=== PATIENT | female | born 1945 | race Caucasian/White ===

== ENCOUNTER → 2016-08-16 | Outpatient (CLI) | payer MEDICARE ==
[~2016-08-16] MED LIST: GLUCOPHAGE500 M1 PO; LASIX20 MG PO; OXYCODONE HCL10 MG PO; PRILOSEC PO; PRILOSEC40 MG PO
--- NOTE | ~2016-08-16 | CT7 ---
[facility] A Service of [facility] & [facility] RADIOLOGY TEXT RESULTS PATIENT: VILMA LEMON LOCATION: [facility] : 45 UNIT #: [id number] AGE: [address]: Missael Garza MD SEX: F ORDER DR: [id number] [facility] [address] [place], [place] [address] [id number] O MR#: [id number] [facility] #: [id number] NAME: VILMA LEMON. : 1945 SEX: F STUDY DATE/TIME: 08/16/2016 13:02 UNIT: [facility] ROOM: STUDY DESCRIPTION: CT Abdomen Wo Cont Attending Physician: Missael Garza M.D., Ph.D. Referring Physician: Missael Garza M.D., Ph.D. Ordering Physician: Missael Garza M.D., Ph.D. Primary Care Physician: Walter Sheets M.D. MEDICAL IMAGING REPORT This report is preliminary unless electronic signature is present EXAM CT abdomen without contrast. INDICATIONS Restaging lung cancer. Observation for metastatic disease. PROCEDURE Unenhanced CT of the abdomen. This CT exam was performed with one or more of the following radiation dose reduction techniques: automatic exposure control, adjustment of mA and/or kV according to patient size, and iterative reconstruction. COMPARISON 03/01/2016. FINDINGS Refer to the separately dictated CT of the chest for thoracic findings. Stable subcentimeter cyst, left hepatic lobe. Spleen, pancreas have an unremarkable unenhanced appearance. Gallbladder is somewhat distended, but shows no radiodense stones or definite inflammatory change and is stable from the prior. There is an 8 mm high-attenuation lesion in the left kidney. It is not clearly seen on the previous contrast-enhanced study. Stable left adrenal adenoma. No aggressive appearing bone lesion. IMPRESSION 1. No convincing evidence for metastatic disease in the abdomen. 2. Incidental findings detailed above are stable. 3. There is an 8 mm high-attenuation lesion in the left kidney not clearly seen on the previous study. Though indeterminate, it probably represents a small benign proteinaceous or hemorrhagic cyst. Consider renal ultrasound for evaluation. Dictated by... [facility] A Service of [facility] & [facility] RADIOLOGY TEXT RESULTS PATIENT: VILMA LEMON LOCATION: [facility] #: [id number] : 45 UNIT #: [id number] AGE: [address]: Missael Garza MD SEX: F ORDER DR: Andreas Winter M.D. THIS IS AN ELECTRONICALLY VERIFIED REPORT Andreas Winter M.D. at 08/18/2016 7:53 AM ELLIE/katy TD: 08/17/2016 11:23 JOB #: [id number] MEDICAL IMAGING REPORT COPY
--- NOTE | ~2016-08-16 | CT57 ---
[facility] A Service of [facility] & [facility] RADIOLOGY TEXT RESULTS PATIENT: VILMA LEMON LOCATION: [facility] : 45 UNIT #: [id number] AGE: [address]: Missael Garza MD SEX: F ORDER DR: [id number] [facility] [address] [place], [place] [address] [id number] O MR#: [id number] [facility] #: [id number] NAME: VILMA LEMON. : 1945 SEX: F STUDY DATE/TIME: 08/16/2016 13:02 UNIT: [facility] ROOM: STUDY DESCRIPTION: CT Chest Wo Cont Attending Physician: Missael Garza M.D., Ph.D. Referring Physician: Missael Garza M.D., Ph.D. Ordering Physician: Missael Garza M.D., Ph.D. Primary Care Physician: Walter Sheets M.D. MEDICAL IMAGING REPORT This report is preliminary unless electronic signature is present EXAM CT chest without contrast INDICATIONS Lung cancer restaging. Observation for metastatic disease. Observation for response to therapy. PROCEDURE Unenhanced CT of the chest. This CT exam was performed with one or more of the following radiation dose reduction techniques: automatic exposure control, adjustment of mA and/or kV according to patient size, and iterative reconstruction. COMPARISON 03/01/2016 FINDINGS Significant emphysema. Nodular opacity, with fibrotic appearance posterior right upper lobe measures 3.0 x 2.0 cm, previously 2.8 x 1.4 cm. A second nodular subpleural region in the posterior right upper lobe along the fissure measures 11 mm and is stable to minimally smaller. Subpleural nodularity, superior segment of the left lower lobe along the fissure shows some central cavitation. It measures approximately 3.2 x 2.0 cm, previously 3.9 x 1.6 cm. No new nodule. There is new lytic lesion in the posterior left seventh rib adjacent to the left lung mass or nodule. There is also stable irregularity of the posterior right third rib adjacent to the right upper lobe mass. IMPRESSION 1. Interval increase in size of mass in the posterior right upper lobe. This is suspicious for residual or recurrent tumor. There is stable bony destruction of the underlying right third rib. 2. The lesion in the posterior, superior segment of the left lower lobe STS. [facility] A Service of [facility] & [facility] RADIOLOGY TEXT RESULTS PATIENT: VILMA LEMON LOCATION: [facility] : 45 UNIT #: [id number] AGE: [address]: Missael Garza MD SEX: F ORDER DR: along the fissure is very similar in size and may be slightly decreased. However there is new bony destruction of the underlying left seventh rib, in keeping with persistent and progressive disease. 3. No new pulmonary nodule. 4. Severe emphysema. 5. No adenopathy is seen in the chest. 6. A PET scan may be helpful in evaluating the full extent of activity of disease in the chest. Dictated by... Andreas Winter M.D. THIS IS AN ELECTRONICALLY VERIFIED REPORT Andreas Winter M.D. at 08/18/2016 7:53 AM EED/valdo TD: 08/17/2016 11:40 JOB #: [id number] MEDICAL IMAGING REPORT COPY
== END | disposition home or self-care (01) ==
LOC: CCAT 11:51
DX: C34.32 Malignant neoplasm of lower lobe, left bronchus or lung (principal); B95.3 Streptococcus pneumoniae as the cause of diseases classified elsewhere; R09.02 Hypoxemia; E07.9 Disorder of thyroid, unspecified; N28.89 Other specified disorders of kidney and ureter; R91.1 Solitary pulmonary nodule; J43.9 Emphysema, unspecified
CPT/HCPCS: 71250; 74150

== ENCOUNTER → 2016-11-09 | Outpatient (CLI) | payer MEDICARE ==
--- NOTE | ~2016-11-09 | CT55 ---
[facility] A Service of [facility] & [facility] RADIOLOGY TEXT RESULTS PATIENT: VILMA LEMON LOCATION: [facility] : 45 UNIT #: [id number] AGE: [address]: Missael Garza MD SEX: F ORDER DR: [id number] [facility] [address] [place], [place] [address] [id number] O MR#: [id number] [facility] #: [id number] NAME: VILMA LEMON. : 1945 SEX: F STUDY DATE/TIME: 11/09/2016 10:28 UNIT: [facility] ROOM: STUDY DESCRIPTION: CT Chest W Con Attending Physician: Missael Garza M.D., Ph.D. Ordering Physician: Fahad Garza M.D. Primary Care Physician: Primary Care Physician No MEDICAL IMAGING REPORT This report is preliminary unless electronic signature is present EXAM CT chest INDICATION Malignant neoplasm of the right upper lobe and left upper lobe. Restaging. Observation for metastatic disease. TECHNIQUE CT of the thorax with IV contrast (100 mL Isovue-370 IV contrast). Coronal and sagittal reconstructions were obtained. This CT exam was performed with one or more of the following radiation dose reduction techniques: automatic exposure control, adjustment of mA and/or kV according to patient size, and iterative reconstruction. COMPARISON CT chest dated 08/16/2016 and 03/01/2016. FINDINGS The partially cavitary mass in the superior segment, left lower lobe has increased in size measuring 5.5 x 5.3 x 4.4 cm, compared to 3.4 x 1.6 x 2.4 cm previously. The mass now erodes through the posterior left seventh rib. There is some osseous involvement of the posterior eighth rib. There is increased size of a posterior consolidation in the right upper lobe. This area measures 4.7 x 3.8 cm compared to 3.0 x 2.0 cm previously. The mass extends into the pleural space where there is some osseous erosion and sclerosis associated with the right posterior third and fourth ribs. There is severe emphysema. No new pulmonary nodules. There is some mildly enlarged mediastinal lymph nodes. A left paratracheal lymph node conglomeration measures up to 1.5 cm in short STS. [facility] A Service of [facility] & [facility] RADIOLOGY TEXT RESULTS PATIENT: VILMA LEMON LOCATION: [facility] : 45 UNIT #: [id number] AGE: [address]: Missael Garza MD SEX: F ORDER DR: axis. The soft tissue is new from the prior study. There is development of left hilar lymphadenopathy. Index left hilar lymph node measures 1.4 cm short axis. Please refer to separately dictated report for details on the abdomen. No osseous lesions are identified in the thoracic spine. IMPRESSION 1. Progression of the patient's metastatic disease. 2. Significant enlargement of the mass in the superior segment left lower lobe. This invades through the chest wall and involves the left posterior 7th rib. 3. Enlargement of the right upper lobe pulmonary mass with involvement of the right posterior 3rd and 4th ribs. 4. Severe emphysema. 5. Enlargement of mediastinal and left hilar lymphadenopathy consistent with metastatic disease. Dictated by... Daniel Veras M.D. THIS IS AN ELECTRONICALLY VERIFIED REPORT Daniel Veras M.D. at 11/09/2016 4:45 PM Tatiana TD: 11/09/2016 13:31 JOB #: [id number] MEDICAL IMAGING REPORT Page 1 of 1 COPY
--- NOTE | ~2016-11-09 | CT5 ---
[facility] A Service of [facility] RADIOLOGY TEXT RESULTS PATIENT: VILMA LEMNO LOCATION: [facility] : 45 UNIT #: [id number] AGE: [address]: Missael Garza MD SEX: F ORDER DR: [id number] [place], [place] [address] [id number] O MR#: [id number] Acc #: [id number] NAME: VILMA LEMON. : 1945 SEX: F STUDY DATE/TIME: 11/09/2016 10:28 UNIT: [facility] ROOM: STUDY DESCRIPTION: CT Abdomen W Cont Attending Physician: Missael Garza M.D., Ph.D. Ordering Physician: Fahad Garza M.D. Primary Care Physician: No Primary Care Physician MEDICAL IMAGING REPORT This report is preliminary unless electronic signature is present EXAM CT abdomen with contrast INDICATIONS Lung cancer. Observation for metastatic disease. Restaging. TECHNIQUE CT of the abdomen with IV contrast. Coronal and sagittal reconstructions were obtained. This CT exam was performed with one or more of the following radiation dose reduction techniques: automatic exposure control, adjustment of mA and/or kV according to patient size, and iterative reconstruction. COMPARISON Concurrent CT chest 10/13/2016. CT chest and abdomen dated 08/16/2016. FINDINGS No evidence of disease progression in the abdomen. There is low-attenuation thickening of the left adrenal gland; however, this is unchanged from the 03/01/2016 exam and probably represents adrenal adenoma involvement. The bowel is not dilated. No enlarged retroperitoneal or mesenteric lymph nodes. The abdominal aorta is normal in caliber. No acute osseous abnormalities. IMPRESSION No evidence of disease progression in the abdomen. Dictated by... Daniel Veras M.D. [facility] A Service [facility] RADIOLOGY TEXT RESULTS PATIENT: VILMA LEMON LOCATION: [facility] : 45 UNIT #: [id number] AGE: [address]: Missael Garza MD SEX: F ORDER DR: THIS IS AN ELECTRONICALLY VERIFIED REPORT Daniel Veras M.D. at 11/09/2016 4:42 PM ANDERS/trell TD: 11/09/2016 13:46 JOB #: [id number] MEDICAL IMAGING REPORT Page 1 of 1 COPY
[2016-11-09 12:51] LABS: POC - CREATININE 0.67 mg/dL (0.44-1.03); POC - GFR >60.0 mL/min (>60)
== END | disposition home or self-care (01) ==
LOC: CCAT 08:56
PROVIDERS: Internal Medicine Hematology & Oncology
DX: C34.32 Malignant neoplasm of lower lobe, left bronchus or lung (principal); B95.3 Streptococcus pneumoniae as the cause of diseases classified elsewhere; E07.9 Disorder of thyroid, unspecified; J43.9 Emphysema, unspecified; R59.0 Localized enlarged lymph nodes
CPT/HCPCS: 71260; 74160; 82565; Q9967

== ENCOUNTER → 2017-01-13 | Outpatient (CLI) | payer MEDICARE ==
--- NOTE | ~2017-01-13 | CT5 ---
[facility] A Service of [facility] & [facility] RADIOLOGY TEXT RESULTS PATIENT: VILMA LEMON LOCATION: [facility] : 45 UNIT #: [id number] AGE: [address]: Missael Garza MD SEX: F ORDER DR: [id number] [facility] [address] [place], [place] [address] [id number] O MR#: [id number] [facility] #: [id number] NAME: VILMA LEMON. : 1945 SEX: F STUDY DATE/TIME: 01/13/2017 9:23 UNIT: [facility] ROOM: STUDY DESCRIPTION: CT Abdomen W Cont Attending Physician: Missael Garza M.D., Ph.D. Referring Physician: Missael Garza M.D., Ph.D. Ordering Physician: Missael Garza M.D., Ph.D. Primary Care Physician: No Primary Care Physician MEDICAL IMAGING REPORT This report is preliminary unless electronic signature is present EXAM CT abdomen with contrast. Restaging lung cancer. Observation for metastatic disease. PROCEDURE Contrast-enhanced CT of the abdomen. 11/09/2016 Refer to the separately dictated chest CT for thoracic findings. TECHNIQUE This CT exam was performed with one or more of the following radiation dose reduction techniques: automatic exposure control, adjustment of mA and/or kV according to patient size, and iterative reconstruction. FINDINGS A subcentimeter cyst in the left lobe of the liver is stable. No new liver lesion. Spleen, kidneys, adrenal glands, pancreas, gallbladder unremarkable. Bowel loops are nondilated. Moderate colonic stool. No new or enlarging abdominal pain. No aggressive appearing bone lesion. IMPRESSION 1. No evidence for disease progression. 2. Refer to the separately dictated chest CT for thoracic findings. Dictated by... Andreas Winter M.D. THIS IS AN ELECTRONICALLY VERIFIED REPORT Andreas Winter M.D. at 01/17/2017 8:20 AM ELLIE/trell TD: 01/13/2017 12:27 [facility]. [facility] A Service of [facility] & [facility] RADIOLOGY TEXT RESULTS PATIENT: VILMA LEMON LOCATION: [facility] : 45 UNIT #: [id number] AGE: [address]: Missael Garza MD SEX: F ORDER DR: JOB #: [id number] MEDICAL IMAGING REPORT Page 1 of 1 COPY
--- NOTE | ~2017-01-13 | CT55 ---
[facility] A Service of [facility] & [facility] RADIOLOGY TEXT RESULTS PATIENT: VILMA LEMON LOCATION: [facility] : 45 UNIT #: [id number] AGE: [address]: Missael Garza MD SEX: F ORDER DR: [id number] [facility] [address] [place], [place] [address] [id number] O MR#: [id number] [facility] #: [id number] NAME: VILMA LEMON. : 1945 SEX: F STUDY DATE/TIME: 01/13/2017 9:23 UNIT: [facility] ROOM: STUDY DESCRIPTION: CT Chest W Con Attending Physician: Missael Garza M.D., Ph.D. Referring Physician: Missael Garza M.D., Ph.D. Ordering Physician: Missael Garza M.D., Ph.D. Primary Care Physician: No Primary Care Physician MEDICAL IMAGING REPORT This report is preliminary unless electronic signature is present EXAM CT chest with contrast INDICATIONS Restaging lung cancer. Cough for the past 2 months. Observation for metastatic disease. PROCEDURE Contrast-enhanced CT chest. This CT exam was performed with one or more of the following radiation dose reduction techniques: automatic exposure control, adjustment of mA and/or kV according to patient size, and iterative reconstruction. COMPARISON 11/09/2016 FINDINGS Severe emphysema. Fibrosis with honeycombing, particularly subpleural in the lung bases. Posterior left lower lobe mass invading the chest wall measures 5.6 x 4.9 cm, previously measured at 5.5 x 5.3 cm. This mass shows destruction of the posterior left seventh and eighth ribs. There is a minimally-displaced fracture of the left eighth rib that is new compared with prior. Mass in the posterior right upper lobe measures 3.9 x 6 cm, not significantly changed from the prior. There is again suspicion for involvement of the posterior right third and fourth ribs. 9-mm nodule right lower lobe, previously 7 mm. The adjacent 1.5-cm nodule posterior right lower lobe not well seen on the prior but it is probably increased as well. previously measuring 8 mm. No pleural fluid or pneumothorax. Abnormal left paratracheal soft tissue/adenopathy measures approximately 11 mm in short axis dimension. Not significantly changed from the prior. [facility] A Service of [facility] & [facility] RADIOLOGY TEXT RESULTS PATIENT: VILMA LEMON LOCATION: [facility] : 45 UNIT #: [id number] AGE: [address]: Missael Garza MD SEX: F ORDER DR: An ovoid mass in the medial right breast is stable and measures 2.1 cm. Refer to separately dictated abdomen CT performed from below the diaphragm. No aggressive-appearing bone lesion. IMPRESSION 1. Mass in the posterior left lower lobe is stable to possibly slightly decreased in size; however, there is new involvement of the posterior left eighth rib with a minimally-displaced pathologic fracture. 2. Mass along the posterior aspect of the right upper lobe is not significantly changed in size and again shows involvement of the right third and fourth ribs. 3. Interval increase in size of 2 nodules in the posterior right lower lobe, detailed above. 4. Stable abnormal soft tissue or adenopathy in the mediastinum. Dictated by... Andreas Winter M.D. THIS IS AN ELECTRONICALLY VERIFIED REPORT Andreas Winter M.D. at 01/17/2017 8:20 AM Shilpi TD: 01/13/2017 12:38 JOB #: [id number] MEDICAL IMAGING REPORT Page 1 of 1 COPY
[2017-01-13 09:11] LABS: POC - CREATININE 0.76 mg/dL (0.44-1.03); POC - GFR >60.0 mL/min (>60)
== END | disposition home or self-care (01) ==
LOC: CCAT 08:13
PROVIDERS: Internal Medicine Hematology & Oncology
DX: C34.10 Malignant neoplasm of upper lobe, unspecified bronchus or lung (principal); B95.3 Streptococcus pneumoniae as the cause of diseases classified elsewhere; R09.02 Hypoxemia; E07.9 Disorder of thyroid, unspecified; R91.8 Other nonspecific abnormal finding of lung field; R93.8 Abnormal findings on diagnostic imaging of other specified body structures
CPT/HCPCS: 71260; 74160; 82565; Q9967